=== PATIENT | female | born 1995 ===

== ENCOUNTER 2025-04-05 10:56 | Day surgery (SDC) | payer OTHER ==
[2025-03-28 12:41] LABS: PH,URINE 6.5 (5.0-8.0); URINE APPEARANCE Clear; URINE BILIRRUBIN Negative (NEGATIVE); URINE BLOOD Negative; URINE COLOR Yellow; URINE GLUCOSE Negative (NEGATIVE); URINE KETONE Negative (NEGATIVE); URINE LEUKOCYTE Moderate; URINE NITRATE Negative; URINE PROTEIN Negative (NEGATIVE); URINE UROBILINOGEN 0.2 E.U./dl
[2025-03-28 12:42] LABS: URINE BACTERIA 2599.7 uL (0.0-1933); URINE EPITHELIAL CELLS 56.3 uL (0.0-38.8); URINE RBC 16.3 uL (0.0-20.8); URINE WBC 86.1 uL (0.0-23.2)
[2025-03-28 12:50] LABS: BASO % 0.2 % (0.1-1.2); EOS # 0.15 (0.04-0.54); EOS % 2.5 % (0.7-7.0); HEMATOCRIT 36.2 % (34.1-44.9); HEMOGLOBIN 11.9 g/dL (11.2-15.7); LYMPH # 1.65 (1.18-3.74); LYMPH % 27.2 % (19.3-53.1); MEAN CORPUSCULAR HEMOGLOBIN 25.6 pg (25.6-32.2); MONO # 0.47 (0.24-0.82); MONO % 7.8 % (4.7-12.5); NEUT # 3.76 (1.56-6.13); PLATELET COUNT 211 K/uL (163-369); RED BLOOD COUNT 4.65 M/uL (3.93-5.22); RED CELL DISTRIBUTION WIDTH 13.8 % (11.6-14.4)
[2025-03-28 13:07] LABS: INR 0.97; PARTIAL THROMBOPLASTIN TIME 28.5 SECONDS (22.0-34.0); PROTHROMBIN TIME 10.6 SECONDS (9.0-11.5)
[2025-03-28 13:19] LABS: ALBUMIN 3.9 gm/dL (3.4-5.0); BILIRUBIN TOTAL 0.32 mg/dL (0.3-1.2); CALCIUM 8.6 mg/dL (8.5-10.1); CREATININE SERUM 0.68 mg/dL (0.55-1.02); GFR 100.27; GLOBULINA 3.8 G/DL (2.4-3.5); POTASSIUM 3.45 mEq/L (3.5-5.1); TOTAL PROTEIN 7.7 gm/dL (6.4-8.2); TSH 0.583 uIU/mL (0.358-3.74)
[2025-03-28 13:20] LABS: URINE CAST 0.14 uL (0.0-1.40)
[2025-04-05] MEDS ORDERED: POVIDONE-IODINE 118 ML BOTT TOP ONE (12:13)
[2025-04-05] MEDS ORDERED: CEFAZOLIN SODIUM 1,000 MG VIAL ONE (12:58)
[2025-04-05] MEDS ORDERED: KETOROLAC TROMETHAMINE 30 MG VIAL IU ONE (14:15)
[2025-04-05] MEDS ORDERED: FAMOTIDINE/PF 20 MG/2 ML VIAL IV ONE (14:15)
[2025-04-05] MEDS ORDERED: ONDANSETRON HCL 2 MG/ML VIAL IV ONE (14:15)
== END 2025-04-05 19:40 | disposition home or self-care (01) ==
LOC: CIR.AMB 10:56
PROVIDERS: ATTEND General Practice
DX: N84.0 Polyp of corpus uteri (principal); N93.8 Other specified abnormal uterine and vaginal bleeding; Z88.1 Allergy status to other antibiotic agents